=== PATIENT | male | born 1940 | race Caucasian/White ===

== ENCOUNTER 2025-01-27 09:14 | Outpatient (CLI) | payer MEDICARE, BC ==
--- NOTE | 2025-01-27 10:36 | RADIOLOGY REPORT ---
CLINICAL HISTORY: PROSTATE CANCER TECHNIQUE: MRI of the brain was performed with and without gadolinium. 15 ml of clariscan was administered intravenously. COMPARISON: None FINDINGS: There is no abnormal restricted diffusion to suggest acute infarction. There is [id number] brain volume loss. There is no significant chronic small vessel ischemic change. There is no evidence for acute ischemic changes, mass, mass effect, or extra- axial fluid collection. There is no hydrocephalus or midline shift. The cerebral sulci and subarachnoid cisterns are not effaced. The imaged paranasal sinuses are clear. The globes are intact. The midline structures, including the corpus callosum, are unremarkable. The intracranial flow voids are maintained. There is no abnormal post contrast enhancement. IMPRESSION: No MR evidence for intracranial metastatic disease.
[2025-01-27] MEDS ORDERED: GADOTERATE MEGLUMINE 7.5 MMOL/15 ML VIAL IV ONE (15:36)
== END 2025-01-27 23:59 | disposition home or self-care (01) ==
LOC: MRI 09:14
PROVIDERS: ATTEND Student in an Organized Health Care Education/Training Program
DX: G93.89 Other specified disorders of brain (principal); C61 Malignant neoplasm of prostate
CPT/HCPCS: 70553; A9575